=== PATIENT | female | born 1945 | race Hispanic/Latino ===

== ENCOUNTER 2018-08-17 00:51 | Observation (INO) | payer MEDICARE, MEDICAID ==
[2018-08-17 11:24] VITALS: BMI 22.1
[2018-08-17] MEDS ORDERED: Ondansetron PF 4 MG/2 ML Vial IVP PRN (12:05)
[2018-08-17] MEDS ORDERED: Ondansetron ODT 4 MG TAB PO PRN (12:05)
[2018-08-17 12:06] LABS: Troponin I 0.017 ng/mL (< 0.028)
[2018-08-17] MEDS ORDERED: Acetaminophen 325 MG TAB PO PRN ×2 (12:06→12:40)
[2018-08-17] MEDS ORDERED: Bisacodyl 5 MG TAB PO PRN (12:40)
[2018-08-17 14:36] LABS: Troponin I 0.021 ng/mL (< 0.028)
[2018-08-17] MEDS: Furosemide 40 MG/4 ML VIAL SLOW IVP SCH (15:42)
[2018-08-17] MEDS ORDERED: Nitroglycerin 0.4 MG TAB (25 Tab Bottle) SL PRN (18:37)
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
[2018-08-17] MEDS: Acetaminophen/Codeine 30-300mg Tablet PO PRN (19:38)
[2018-08-17] MEDS: Lorazepam 1 MG TAB PO PRN (19:39)
[2018-08-18] MEDS: Levothyroxine Sodium 100 MCG TAB PO SCH (05:37)
[2018-08-18] MEDS: Furosemide 40 MG/4 ML VIAL SLOW IVP SCH ×2 (05:37→13:47)
[2018-08-18 06:07] LABS: Anion Gap 11 mmol/L (10-20); BUN (Urea Nitrogen) 9 mg/dL (9.8-20.1); Calc. Creatinine Clearance 41 mL/min (70-130); Calcium 8.8 mg/dL (7.8-10.44); Carbon Dioxide 31 mmol/L (23-31); Chloride 100 mmol/L (98-107); Estimated GFR-MDRD 58; Glucose 107 mg/dL (83-110); Potassium 3.5 mmol/L (3.5-5.1); Sodium 138 mmol/L (136-145)
[2018-08-18 06:10] LABS: Band 1 % (5-11); Eosinophils 10 % (0-10); Hemoglobin 12.5 g/dL (12.0-16.0); Lymphocytes 28 % (21-51); MDiff Complete? YES; Mean Corpuscular HGB CONC 32.4 g/dL (32.0-36.0); Mean Corpuscular Hemoglobin 31.5 pg (27.0-31.0); Mean Corpuscular Volume 97.2 fL (78.0-98.0); Mean Platelet Volume 7.6 fL (7.4-10.4); Monocytes 22 % (0-10); Neutrophil 36 % (42-75); Platelet Count 208 thou/uL (130-400); RBC Distribution Width 12.4 % (11.5-14.5); Reactive Lymphocytes 3 % (0-10); Red Blood Cell (RBC) Count 3.96 mill/uL (4.20-5.40); White Blood Cell (WBC) Count 6.1 thou/uL (4.8-10.8)
[2018-08-18] MEDS: Aripiprazole 10 MG TAB PO SCH (08:02)
[2018-08-18] MEDS: Lisinopril 20 MG TAB PO SCH (08:02)
[2018-08-18] MEDS ORDERED: cloNIDine 0.1 MG TAB PO PRN (08:53)
[2018-08-18] MEDS: Acetaminophen/Codeine 30-300mg Tablet PO PRN (12:11)
[2018-08-18] MEDS: Lorazepam 1 MG TAB PO PRN (12:12)
--- NOTE | 2018-08-18 17:26 | EKG ---
Test Reason : Blood Pressure : / mmHG Vent. Rate : 074 BPM Atrial Rate : 074 BPM P-R Int : 124 ms QRS Dur : 126 ms QT Int : 438 ms P-R-T Axes : 059 -26 115 degrees QTc Int : 486 ms Normal sinus rhythm Left bundle branch block Abnormal ECG When compared with ECG of 17-AUG-2018 01:20, (Unconfirmed) Left bundle branch block is now Present Criteria for Anterior infarct are no longer Present Confirmed by DR. Shaina BAER ([id number]) on 08/18/2018 5:26:43 PM Referred By: EVY Confirmed By:DR. Shaina BAER
[2018-08-18] MEDS: Lovastatin 20 MG TAB PO SCH (18:05)
--- NOTE | 2018-08-18 19:51 | CON ---
DATE OF CONSULTATION: REASON FOR CONSULTATION: Elevated BNP. HISTORY OF PRESENT ILLNESS: Ms. Gomez is a 72-year-old woman, who is a poor historian. She recently was admitted by Dr. Blue Elias for unknown reason. It is not specified in the chief complaint. Most of the history is obtained from the chart. The patient is not able to give a good history. She has no history of underlying coronary artery disease. Her BNP was slightly elevated. On recent echo, her LVEF is estimated in the 40% to 45%. She was also diagnosed with pneumonia. PAST MEDICAL HISTORY: 1. Acid reflux. 2. Hypertension. 3. Osteoporosis. 4. Hypothyroidism. 5. COPD. SOCIAL HISTORY: Positive for chewing tobacco. Negative for alcohol use. FAMILY HISTORY: Negative for CAD. REVIEW OF SYSTEMS: A 10-point review of systems is reviewed as above, otherwise negative. PHYSICAL EXAMINATION: GENERAL: Patient is a pleasant female, who is in no acute distress. The patient appears their stated age. VITAL SIGNS: Blood pressure 167/85, pulse 72, temperature 98. NEUROLOGIC: The patient is alert and oriented x3 with no focal neurologic deficits. HEENT: Sclerae without icterus. Mouth has moist mucous membranes with normal pallor. NECK: No JVD. Carotid upstroke brisk. No bruits bilaterally. LUNGS: Clear to auscultation with unlabored respirations. BACK: No scoliosis or kyphosis. CARDIAC: Regular rate and rhythm with normal S1 and S2. No S3 or S4 noted. No significant rubs, murmurs, thrills, or gallops noted throughout the precordium. PMI is not displaced. There is no parasternal heave. ABDOMEN: Soft, nontender, nondistended. No peritoneal signs present. No hepatosplenomegaly. No abnormal striae. EXTREMITIES: 2+ femoral and 2+ dorsalis pedis pulses. No cyanosis, clubbing, or edema. SKIN: No gross abnormalities. IMAGING DATA: Echo with Doppler dated on 08/18/2018; LVEF of 40% to 45% with mild MR, TR. PERTINENT LABORATORY DATA: Hemoglobin 12.5. BNP of 369. TSH 0.03. IMPRESSION: 1. Elevated BNP. 2. Mild cardiomyopathy. 3. Pneumonia. 4. Mental status changes. RECOMMENDATIONS: From a CV standpoint, Ms. Gomez appears stable. She is currently on Lasix IV. We will continue. LVEF may be a chronic condition or may be related to recent pneumonia. I would like to discuss further with family. Continue IV Lasix. We will transition to p.o. Lasix. She is also on lisinopril. Would add low-dose Coreg. Job ID: [id number]
--- NOTE | 2018-08-18 20:59 | PRG ---
DATE OF SERVICE: 08/18/2018 SUBJECTIVE: The patient denies any new complaints. Has intermittent dry cough. Feels better otherwise. She denies any chest discomfort. CURRENT MEDICATIONS: Reviewed. The patient is currently on Levaquin, IV Lasix, lisinopril, Protonix, and Zoloft. OBJECTIVE: VITAL SIGNS: Temperature 98.5, pulse rate of 64, respirations 16, O2 saturation 97% on 2 L nasal cannula, and blood pressure 107/59. Intake of 1200, output 500 mL. GENERAL: A 72-year-old female in no apparent distress. LUNGS: Showed scattered rhonchi and rales, especially in the right upper lobe. No wheezing. HEART: S1, S2 present. Regular rate and rhythm. ABDOMEN: Soft, bowel sounds present. EXTREMITIES: Trace edema in bilateral lower extremities. Telemetry monitoring by my review showed sinus rhythm/sinus bradycardia. IMPRESSION: 1. Right upper lobe pneumonia, suspected pneumococcal. 2. Acute on chronic diastolic heart failure exacerbation. 3. Tobacco dependence. 4. Hypertension. 5. Hypothyroidism. 6. Chronic obstructive pulmonary disease with chronic respiratory failure. 7. Gastroesophageal reflux disease. 8. Osteoporosis. 9. Chronic kidney disease stage 3. 10. Penicillin allergy. PLAN: Levaquin will be continued. We will change Lasix to p.o. Echocardiogram was reviewed. We will continue other medications. We will probably plan on discharging her in the next 24 hours. We will recheck labs in a.m. Continue other medications. Job ID: [id number]
[2018-08-19] MEDS: Levothyroxine Sodium 100 MCG TAB PO SCH (05:45)
--- NOTE | 2018-08-19 06:21 | PDOC.CTH ---
Cardiology Progress Note - Subjective No complaints - Objective Vital Signs Temp Pulse Resp BP BP Pulse Ox 08/19/18 03:45 98.7 F 66 16 114/47 L 96 08/18/18 23:28 64 16 97/54 L 98 08/18/18 22:30 61 93/51 L 08/18/18 20:30 91/52 L 08/18/18 20:00 98.1 F 64 16 88/51 L 98 Weight 105 lb 3.2 oz 08/17/18 08/18/18 08/19/18 06:59 06:59 06:59 Intake Total 630 1440 Output Total 1000 Balance 630 440 - Physical Examination General/Neuro: NAD Neck: no JVD present Lungs: CTA, unlabored respirations Heart: PMI normal, RRR Abdomen: NT/ND, soft Extremities: + femoral B - Labs Result Diagrams: 08/19/18 04:56 08/19/18 04:56 Troponin/CKMB Troponin I 0.021 ng/mL (< 0.028) 08/17/18 14:04 - Assessment/Plan Mild CArdiomyopathy pneumonia dementia Advanced age On Abx Change lasix from IV to PO on coreg, ACEI and statin Ok for DC with OP fu
[2018-08-19 06:37] LABS: Albumin 3.7 g/dL (3.4-4.8); Anion Gap 13 mmol/L (10-20); BUN (Urea Nitrogen) 17 mg/dL (9.8-20.1); BUN/Creatinine Ratio 11.64; Calc. Creatinine Clearance 26 mL/min (70-130); Calcium 9.1 mg/dL (7.8-10.44); Carbon Dioxide 28 mmol/L (23-31); Chloride 101 mmol/L (98-107); Estimated GFR-MDRD 35; Glucose 106 mg/dL (83-110); Magnesium 2.1 mg/dL (1.6-2.6); Phosphorus 3.9 mg/dL (2.3-4.7); Potassium 3.6 mmol/L (3.5-5.1); Sodium 138 mmol/L (136-145)
[2018-08-19 06:46] LABS: Mean Corpuscular HGB CONC 32.7 g/dL (32.0-36.0); Mean Corpuscular Hemoglobin 31.7 pg (27.0-31.0); Mean Platelet Volume 7.6 fL (7.4-10.4); Platelet Count 236 thou/uL (130-400); RBC Distribution Width 12.4 % (11.5-14.5); Red Blood Cell (RBC) Count 4.11 mill/uL (4.20-5.40); White Blood Cell (WBC) Count 6.8 thou/uL (4.8-10.8)
[2018-08-19] MEDS ORDERED: Furosemide 40 MG TAB PO SCH (07:30)
[2018-08-19] MEDS ORDERED: Multivit, Therapeutic 1 TAB PO SCH (09:00)
[2018-08-19 09:45] LABS: Band 10 % (5-11); Eosinophils 2 % (0-10); Lymphocytes 36 % (21-51); MDiff Complete? YES; Monocytes 16 % (0-10); Neutrophil 36 % (42-75); RBC Morphology Normal
[2018-08-19] MEDS: Lisinopril 20 MG TAB PO SCH (10:11)
[2018-08-19] MEDS: Aripiprazole 10 MG TAB PO SCH (10:14)
[2018-08-19] MEDS: Carvedilol 3.125 MG TAB PO SCH ×2 (10:15→18:54)
[2018-08-19] MEDS ORDERED: Sodium Chloride 0.9% 250 ML IV SCH (11:30)
[2018-08-19 14:21] LABS: Anion Gap 12 mmol/L (10-20); BUN (Urea Nitrogen) 16 mg/dL (9.8-20.1); Calc. Creatinine Clearance 32 mL/min (70-130); Calcium 8.9 mg/dL (7.8-10.44); Carbon Dioxide 27 mmol/L (23-31); Chloride 102 mmol/L (98-107); Estimated GFR-MDRD 44; Glucose 116 mg/dL (83-110); Potassium 3.7 mmol/L (3.5-5.1); Sodium 137 mmol/L (136-145)
[2018-08-19] MEDS: Lovastatin 20 MG TAB PO SCH (18:54)
[2018-08-19 19:51] VITALS: BP 124/64; TEMP 98.4
--- NOTE | 2018-08-19 21:24 | DIS ---
DATE OF ADMISSION: 08/17/2018 DATE OF DISCHARGE: 08/19/2018 DISCHARGE DISPOSITION: Home with home health care. DISCHARGE MEDICATIONS: 1. Levaquin 500 mg daily for next 5 days. 2. Lasix 20 mg daily as needed for edema. 3. Carvedilol 3.125 mg b.i.d. 4. Multivitamin 1 tablet daily. 5. All other home medications were left unchanged. The patient was seen on the day of discharge. Denies any new complaints. No chest pain, shortness of breath, palpitations reported. BRIEF HOSPITAL COURSE: The patient is a 72-year-old female with hypertension, tobacco dependence, CKD, and COPD, presented to the hospital with shortness of breath. Please refer to the history and physical for further details. The patient was admitted to the hospital with a diagnosis of community-acquired pneumonia. She was also found to be in congestive heart failure exacerbation. Her BNP on admission was 369. CT angiogram of the chest was done in the emergency room for elevated D-dimer, which showed findings suspicious for right upper lobe pneumonia. She showed good improvement with antibiotics. She has remained afebrile. Her O2 saturation at discharge is 95% on 1 L nasal cannula. Home health care will be arranged. She was also evaluated by Cardiology, who recommended to continue AKASH inhibitor and statin. Carvedilol was added. She tolerated carvedilol very well without significant wheezing. She has been cleared by consultants for discharge. FINAL DIAGNOSES: 1. Generalized weakness, multifactorial. 2. Right upper lobe pneumonia, suspected pneumococcal. 3. [place]oyal-du-hizkc[place] diastolic heart failure exacerbation. 4. Tobacco dependence. 5. Chronic obstructive pulmonary disease with chronic hypoxic respiratory failure, on home oxygen. 6. Tobacco dependence, the patient was counseled. 7. Hypertension. 8. Hypothyroidism. 9. Gastroesophageal reflux disease. 10. Osteoporosis. 11. Chronic kidney disease, stage 3. 12. Penicillin allergy. 13. Physical deconditioning. 14. Mild mitral regurgitation and mild tricuspid regurgitation. 15. Mild mediastinal and bilateral hilar lymphadenopathy. Primary care physician advised to follow. 16. Small hiatal hernia. PLAN: Plan of care was discussed with the patient in detail. She stated understanding. Job ID: [id number]
--- NOTE | 2018-08-23 14:58 | EKG ---
Test Reason : Blood Pressure : / mmHG Vent. Rate : 071 BPM Atrial Rate : 071 BPM P-R Int : 122 ms QRS Dur : 120 ms QT Int : 450 ms P-R-T Axes : 056 -45 116 degrees QTc Int : 489 ms Normal sinus rhythm Left axis deviation Anterior infarct , age undetermined Left bundle branch block Abnormal ECG Confirmed by LOUIE ESTRELLA MD ([id number]), book or script editor WOLF BLISS ([id number]) on 08/23/2018 2:58:07 PM Referred By: Confirmed By:LOUIE ESTRELLA MD
== END 2018-08-19 20:12 | disposition home health service (06) ==
LOC: ERS 00:51 → ERHOLD 01:32 → 2SW 01:51
PROVIDERS: ADMIT Hospitalist; ATTEND Hospitalist
DX: J18.1 Lobar pneumonia, unspecified organism (principal); I13.0 Hypertensive heart and chronic kidney disease with heart failure and stage 1 through stage 4 chronic kidney disease, or unspecified chronic kidney disease; N18.3 Chronic kidney disease, stage 3 (moderate); I50.33 Acute on chronic diastolic (congestive) heart failure; J96.11 Chronic respiratory failure with hypoxia; E03.9 Hypothyroidism, unspecified; K21.9 Gastro-esophageal reflux disease without esophagitis; M81.0 Age-related osteoporosis without current pathological fracture; J44.9 Chronic obstructive pulmonary disease, unspecified; F17.220 Nicotine dependence, chewing tobacco, uncomplicated; F41.9 Anxiety disorder, unspecified; F32.9 Major depressive disorder, single episode, unspecified; R79.89 Other specified abnormal findings of blood chemistry; I42.9 Cardiomyopathy, unspecified; F03.90 Unspecified dementia, unspecified severity, without behavioral disturbance, psychotic disturbance, mood disturbance, and anxiety; K44.9 Diaphragmatic hernia without obstruction or gangrene; I08.1 Rheumatic disorders of both mitral and tricuspid valves; R59.0 Localized enlarged lymph nodes; Z79.899 Other long term (current) drug therapy; Z88.0 Allergy status to penicillin; Z99.81 Dependence on supplemental oxygen
CPT/HCPCS: 80048 ×2; 80069; 83735; 84484 ×2; 85025 ×2; 87040; 93005 ×2; 93306; 94760; 96365; 96366; 96375; 96376; 99285; G0378 ×3; 36415; 93010; J1940; J1956

== ENCOUNTER 2020-03-16 09:57 | Observation (INO) | payer MEDICARE, MEDICAID ==
--- NOTE | 2020-03-16 10:50 | CT ---
Head CT without contrast 03/16/2020: COMPARISON: 10/18/2017 HISTORY: Altered mental status, syncope, fall TECHNIQUE: Axial CT imaging at 5 mm intervals from vertex through skull base without contrast FINDINGS: There is multifocal venous gas likely on the basis of prior intravenous injection seen at t he level the skull base, the cavernous sinuses, and the orbital regions. No acute osseous abnormality. No intracranial hemorrhage, midline shift, or mass effect. IMPRESSION: No intracranial hemorrhage or displaced calvarial fracture.
[2020-03-16 11:12] LABS: #Basophils 0.1 thou/uL (0.0-0.2); #Eosinphils 0.1 thou/uL (0.0-0.7); #Monocytes 0.8 thou/uL (0.11-0.59); #Neutrophils 11.8 thou/uL (1.40-6.50); %Basophils 0.4 % (0.0-1.0); %Lymphocytes 7.1 % (21.0-51.0); %Monocytes 5.8 % (0.0-10.0); %Neutrophils 85.8 % (42.0-75.0); Hemoglobin 13.5 g/dL (12.0-16.0); Mean Corpuscular HGB CONC 32.1 g/dL (32.0-36.0); Mean Corpuscular Hemoglobin 32.1 pg (27.0-31.0); Mean Platelet Volume 7.2 fL (7.4-10.4); Platelet Count 233 thou/uL (130-400); RBC Distribution Width 12.4 % (11.5-14.5); White Blood Cell (WBC) Count 13.8 thou/uL (4.8-10.8)
[2020-03-16 11:40] LABS: ALT (SGPT) 16 U/L (8-55); AST (SGOT) 24 U/L (5-34); Albumin 3.5 g/dL (3.4-4.8); Alkaline Phosphatase 52 U/L (40-110); Anion Gap 16 mmol/L (10-20); BUN (Urea Nitrogen) 11 mg/dL (9.8-20.1); Bilirubin, Total 0.4 mg/dL (0.2-1.2); Calc. Creatinine Clearance 0 mL/min (70-130); Calcium 8.2 mg/dL (7.8-10.44); Carbon Dioxide 22 mmol/L (23-31); Chloride 110 mmol/L (98-107); Globulin 2.6 g/dL (2.4-3.5); Glucose 153 mg/dL (83-110); Potassium 4.1 mmol/L (3.5-5.1); Protein, Total 6.1 g/dL (6.0-8.3); Sodium 144 mmol/L (136-145)
[2020-03-16 11:50] LABS: Bilirubin Negative (Negative); Blood, Urine Negative (Negative); Clarity Clear (Clear); Glucose, Urine (Dipstick) 30 mg/dL (Negative); Ketone, Urine Negative (Negative); Leukocyte Negative Leu/uL (Negative); Nitrite Negative (Negative); Protein, Urine (Dipstick) 20 mg/dL (Neg-Trace); Specific Gravity, Urine 1.012 (1.002-1.036); Urobilinogen Normal mg/dL (Less than 2); pH, Urine 5.5 (5.0-9.0)
--- NOTE | 2020-03-16 11:53 | RAD ---
Portable frontal chest radiograph: 03/16/2020 COMPARISON: 02/18/2020 HISTORY: Syncope and collapse FINDINGS: No pneumothorax or pleural fluid. No focal consolidation or alveolar edema. Mild prominence of the aortic knob with atherosclerotic calcification. Mild pulmonary vascular congestion with no alveolar edema. IMPRESSION: No focal consolidation or alveolar edema.
--- NOTE | 2020-03-16 12:36 | CT ---
CT CERVICAL SPINE WITH CORONAL AND SAGITTAL REFORMATIONS: Date: 03/16/2020 HISTORY: Syncope with fall. FINDINGS/IMPRESSION: Degenerative changes are present. No acute fracture, subluxation, or facet malalignment is identified . There is a focal central disc protrusion at C5-6 level with probable impingement of the anterior sp inal cord. No prevertebral soft tissue swelling is seen. The visualized lung ricardo are unremarkable. There is soft tissue air in and around the cervical spine, as well as in the cavernous sinuses, and p eripheral aspect of the transverse foramina, most likely due to air through IV access. Soft tissue ai r is also seen in the left lower neck/upper chest (?vascular). POS: OFF
[2020-03-16] MEDS ORDERED: Albuterol 200 PUFF (6.7GM INHALER) ONE (13:31)
[2020-03-16] MEDS ORDERED: Acetaminophen/Codeine 30-300mg Tablet PO PRN (14:21)
[2020-03-16] MEDS ORDERED: Sodium Chloride 0.9% 1,000 ML IV SCH (14:30)
[2020-03-16] MEDS ORDERED: Nicotine 14 MG PATCH TD SCH (15:00)
--- NOTE | 2020-03-16 17:24 | PDOC.HHP ---
Hospitalist HPI - History of Present Illness History of Present Illness: ADMISSION DATE: 03/16/2020 TIME OF ASSESSMENT: 1345 PRIMARY CARE PHYSICIAN: Ted CHIEF COMPLAINT: Syncope and collapse HPI: This is a 74-year-old female past medical history significant for COPD, hypertension, CHF, anxiety. She presents to the ER today after having a syncopal episode while at home. Family states that she was getting up to walk to the bathroom when she passed out and fell backwards. When EMS arrived on scene her blood pressure was 70 systolic and she was given 30 mcg of epi twice and a liter of fluids, at that time her blood pressure had risen. Patient does not remember this episode and only remembers EMS being there. Patient denies chest pain, nausea, vomiting, diarrhea, shortness of breath, abdominal pain, ex posure to sick persons. Patient was started on a new prescription yesterday of aripiprazole and temazepam. She did take the temazepam last night for the first time prior to bed. She states that it made her feel a little "off". She stated that she felt a little goofy headed after taking it. ED COURSE: Vital Signs: Blood pressure 160/88, pulse 65, respiratory rate 17, temp 98, O2 saturation 99% on 2 L Today in the ER they completed lab work, CT of the spine and brain, chest x-ray, EKG, UA. Patient was given Proventil 4 puffs and 1 L normal saline. 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 She denies alcohol or drug use. Has previous history of smoking. Patient still dips snuff daily. FAMILY HISTORY: Cancer, hypertension, diabetes ALLERGIES: Penicillin CURRENT MEDICATIONS: Lisinopril 20 mg daily Aripiprazole 10 mg daily Sertraline 100 mg daily Temazepam 50 mg at night Tylenol 3 as needed Albuterol Nitro sublingual as needed Patient also takes a "heart pill" and something for GERDnames unknown Hospitalist ROS - Review of Systems Constitutional: reports: other (syncope this am) ENT: reports: nose congestion All other systems reviewed; all pertinent +/- noted in HPI/Subj - Exam General Appearance: awake alert, ill appearing ENT: normocephalic atraumatic Heart: RRR, no murmur, no gallops, no rubs, normal peripheral pulses Respiratory: no tachypnea, rales, rhonchi Gastrointestinal: soft, non-tender, non-distended, normal bowel sounds Extremities: no edema Skin - other findings: lesion above left upper lip Psychiatric: normal behavior, A&O x 3 Hospitalist Results - Labs Result Diagrams: 03/16/20 10:47 03/16/20 10:47 Lab results: WBC 13.8 thou/uL (4.8-10.8) H 03/16/20 10:47 Hgb 13.5 g/dL (12.0-16.0) 03/16/20 10:47 Hct 42.0 % (36.0-47.0) 03/16/20 10:47 MCV 100.0 fL (78.0-98.0) H 03/16/20 10:47 Plt Count 233 thou/uL (130-400) 03/16/20 10:47 Neutrophils % 85.8 % (42.0-75.0) H 03/16/20 10:47 Sodium 144 mmol/L (136-145) 03/16/20 10:47 Potassium 4.1 mmol/L (3.5-5.1) 03/16/20 10:47 Chloride 110 mmol/L (98-107) H 03/16/20 10:47 Carbon Dioxide 22 mmol/L (23-31) L 03/16/20 10:47 BUN 11 mg/dL (9.8-20.1) 03/16/20 10:47 Creatinine 0.94 mg/dL (0.6-1.1) 03/16/20 10:47 Glucose 153 mg/dL (83-110) H 03/16/20 10:47 Calcium 8.2 mg/dL (7.8-10.44) 03/16/20 10:47 Total Bilirubin 0.4 mg/dL (0.2-1.2) 03/16/20 10:47 AST 24 U/L (5-34) 03/16/20 10:47 ALT 16 U/L (8-55) 03/16/20 10:47 Alkaline Phosphatase 52 U/L (40-110) 03/16/20 10:47 Troponin I Less than 0.010 ng/mL (< 0.028) 03/16/20 10:47 B-Natriuretic Peptide 38.2 pg/mL (0-100) 03/16/20 12:06 Serum Total Protein 6.1 g/dL (6.0-8.3) 03/16/20 10:47 Albumin 3.5 g/dL (3.4-4.8) 03/16/20 10:47 Urine Ketones Negative mg/dL (Negative) 03/16/20 11:34 Urine Blood Negative (Negative) 03/16/20 11:34 Urine Nitrite Negative (Negative) 03/16/20 11:34 Ur Leukocyte Esterase Negative Steve/uL (Negative) 03/16/20 11:34 - EKG Interpretation EKG: Sinus rhythm 60 bpm Hospitalist H&P A/P - Plan Plan: Syncope and collapse Orthostatic vital signs ordered Vital signs every 4 hours Cardiology consult Gentle hydration Echo in a.m. Monitor on telemetry for any arrhythmias Leukocytosis No acute signs of infection currently Possibly related due to the 2 doses of epinephrine Continue to trend for fever and white blood cells in a.m. COPD Continue home medications Osteoporosis Continue Tylenol 3 while in hospital for pain controlis a home medication Hypertension Hold antihypertensives for today as patient had syncopal episode with profound hypotension earlier Continue to monitor every 4 hours Reevaluate tomorrow to see if medications can be restarted VTE prophylaxis in place with SCDs CODE STATUS: Full Surrogate decision-maker is her daughters
[2020-03-16 17:26] LABS: Base Excess-Venous -1.1 mmol/L (-2.0 to 3.0); Bicarbonate (HCO3v) 23.9 mmol/L (22.0-28.0); CO2 Tension (PvCO2) 40.2 mmHg (40.0-50.0); Calcium, Ionized 1.04 mmol/L (1.15-1.33); Chloride 111 mmol/L (98-107); Hemoglobin - Calc 12.7 g/dL (12.0-16.0); Potassium 4.1 mmol/L (3.5-5.1); Sodium 144 mmol/L (138-145); T. Carbon Dioxide 25.1 mmol/L (22.0-28.0); vO2 Saturation-calc 89.8 % (60.0-85.0)
[2020-03-16 17:34] LABS: Troponin I Less than 0.010 ng/mL (< 0.028)
[2020-03-16 22:34] LABS: Troponin I Less than 0.010 ng/mL (< 0.028)
[2020-03-16 23:50] LABS: SARS-CoV-2 NAA Rapid Test Not Detected (NotDetected)
[2020-03-16 23:52] VITALS: BMI 18.8
[2020-03-17 05:01] LABS: #Eosinphils 0.3 thou/uL (0.0-0.7); #Lymphocytes 1.9 thou/uL (1.20-3.40); #Monocytes 0.8 thou/uL (0.11-0.59); #Neutrophils 4.2 thou/uL (1.40-6.50); %Basophils 0.6 % (0.0-1.0); %Eosinophils 4.1 % (0.0-10.0); %Lymphocytes 25.8 % (21.0-51.0); %Monocytes 11.6 % (0.0-10.0); %Neutrophils 57.9 % (42.0-75.0); Mean Corpuscular HGB CONC 32.9 g/dL (32.0-36.0); Mean Corpuscular Hemoglobin 33.2 pg (27.0-31.0); Mean Platelet Volume 7.5 fL (7.4-10.4); Platelet Count 217 thou/uL (130-400); RBC Distribution Width 12.2 % (11.5-14.5); Red Blood Cell (RBC) Count 3.62 mill/uL (4.20-5.40); White Blood Cell (WBC) Count 7.2 thou/uL (4.8-10.8)
[2020-03-17 05:22] LABS: Anion Gap 11 mmol/L (10-20); BUN (Urea Nitrogen) 6 mg/dL (9.8-20.1); Calc. Creatinine Clearance 44 mL/min (70-130); Calcium 7.7 mg/dL (7.8-10.44); Carbon Dioxide 23 mmol/L (23-31); Chloride 109 mmol/L (98-107); Glucose 100 mg/dL (83-110); Potassium 3.5 mmol/L (3.5-5.1); Sodium 139 mmol/L (136-145)
[2020-03-17] MEDS ORDERED: Aspirin Chewable 81 MG TAB PO SCH (09:00)
[2020-03-17] MEDS ORDERED: FLU VACC QS2020-21(65YR UP)/PF 240 MCG/0.7 ML SYRINGE IM ONE (09:00)
--- NOTE | 2020-03-17 11:58 | CON ---
DATE OF CONSULTATION: REASON FOR CONSULTATION: Syncope. HISTORY OF PRESENT ILLNESS: Ms. Gomez is a 74-year-old woman, whom I have seen and evaluated in the past. She has had a previous history of mild cardiomyopathy, estimated at 40% to 45%. She did have a noninvasive stress study performed last year with no ischemia present. LVEF at that time was 51%. She recently presented with syncope. She states she had some mild nausea noted prior. No chest pain, pressure, or other associated symptoms. Note, the patient has had issues with noncompliance in the past. At this point, she also admits to having issues with compliance with the current medical therapy. MEDICATIONS: Current home medications include: 1. Lasix 20 mg q.a.m. 2. Lisinopril 20 daily. 3. Carvedilol 3.125 b.i.d. 4. Omeprazole 40 mg daily. 5. Sertraline. 6. Tylenol. 7. Senna. 8. Vitamin D. 9. Lovastatin. 10. Nitroglycerin p.r.n. 11. Lorazepam. 12. Levothyroxine. PAST MEDICAL HISTORY: Acid reflux, hypertension, osteoporosis, hypothyroidism, COPD, mild systolic dysfunction, depression, previous suicidal ideation, hearing loss. SOCIAL HISTORY: No current tobacco or alcohol use. ALLERGIES: PENICILLIN. REVIEW OF SYSTEMS: 10-point review of systems is reviewed and as above, otherwise negative. PHYSICAL EXAMINATION: VITAL SIGNS: Blood pressure 120/58, pulse 87, temperature 98.9. GENERAL: Patient is a pleasant 74-year-old woman, who is in no acute distress. The patient appears their stated age. NEUROLOGIC: The patient is alert and oriented x3 with no focal neurologic deficits. HEENT: Sclerae without icterus. Mouth has moist mucous membranes with normal pallor. NECK: No JVD. Carotid upstroke brisk. No bruits bilaterally. LUNGS: Clear to auscultation with unlabored respirations. BACK: No scoliosis or kyphosis. CARDIAC: Regular rate and rhythm with normal S1 and S2. No S3 or S4 noted. No significant rubs, murmurs, thrills, or gallops noted throughout the precordium. PMI is not displaced. There is no parasternal heave. ABDOMEN: Soft, nontender, nondistended. No peritoneal signs present. No hepatosplenomegaly. No abnormal striae. EXTREMITIES: 2+ femoral and 2+ dorsalis pedis pulses. No cyanosis, clubbing, or edema. SKIN: No gross abnormalities. PERTINENT LABORATORY DATA: Hemoglobin 13.5, white blood cell count 13.8. Troponin negative. EKG shows normal sinus rhythm with left bundle-branch block. IMPRESSION: 1. Syncope. 2. Mild cardiomyopathy. 3. Chronic left bundle-branch block. RECOMMENDATIONS: Certainly concerning for underlying sick sinus syndrome. This is a first episode of syncope. The rhythm has been stable overnight. Other etiologies to consider include over or under medication given history of noncompliance. She has had suicidal ideations in the past, but none today. We would recommend a 3-week event recorder to be placed today. We would like to see a correlation between bradycardia, pauses, or sick sinus syndrome and symptoms. We will review her echo. If LVEF appears to be stable, it would be okay for discharge this afternoon from my standpoint with close outpatient followup. Job ID: [id number]
[2020-03-17 12:33] VITALS: TEMP 98.5
[2020-03-17 12:43] VITALS: BP 145/67
--- NOTE | 2020-03-18 09:30 | PDOC.DS.DS ---
Provider - Provider Date of Admission: 03/16/20 12:22 Date of Discharge: 03/17/20 Admitting Provider: Blue Elias MD Consultations: Cardiology Primary Care Physician: [facility] Course - Hospital Course Hospital Course: Syncope and collapse Patient presented with syncopal episode. She was subsequently placed in observation status. Orthostatic vital signs were unremarkable. Remainder of her vital signs were unremarkable. Echocardiogram revealed an ejection fraction of 45 to 50% with mild concentric LVH. There was the suggestion of diastolic dysfunction as well. Troponins remain negative. Chemistries were otherwise essentially unremarkable for possible etiologies. She was seen in consultation by cardiology. She was noted to have a chronic left bundle branch block. There was concern for possible sick sinus syndrome. A 3-week event recorder was recommended and placed prior to the patient discharge. Was cardiology's opinion that the patient was stable for discharge for outpatient follow-up. Hypotension: Associated with the syncopal episode and concerning for possible arrhythmia genic origin. Leukocytosis Patient had initial hypotension when EMS presented. She was given 2 rounds of epinephrine. Was felt that her leukocytosis was likely related to these. The white count normalized without any other intervention. She had no fever or other signs of infection. COPD Continue home medications Osteoporosis Continue Tylenol 3 while in hospital for pain controlis a home medication Hypertension Hold antihypertensives for today as patient had syncopal episode with profound hypotension earlier Continue to monitor every 4 hours Reevaluate tomorrow to see if medications can be restarted VTE prophylaxis in place with SCDs CODE STATUS: Full Surrogate decision-maker is her daughters Pertinent Studies: CT brain was negative. There was some soft tissue air noted around the cervical spine cavernous sinus area and peripheral aspect of the transverse foramina most likely due to air through IV access. Chest x-ray is negative. Echocardiogram revealed ejection fraction of 45 to 50% with mild concentric LVH. Suggestion of diastolic dysfunction present. Resuscitation Status: 03/16/20 14:18 Resuscitation Status Routine Co-Sign Provider: Resuscitation Status: FULL: Full Resuscitation Discussed with: pt and daughter - Labs Lab Results: 03/17/20 04:17 03/17/20 04:17 Abnormal Lab Results - Last 48 hrs 03/16/20 10:47: Chloride 110 H, Carbon Dioxide 22 L 03/16/20 10:47: WBC 13.8 H, MCV 100.0 H, MCH 32.1 H, MPV 7.2 L, Neutrophils % 85.8 H, Lymphocytes % 7.1 L, Neutrophils # 11.8 H, Lymphocytes # 1.0 L, Monocytes # 0.8 H 03/16/20 12:06: D-Dimer 0.51 H 03/16/20 15:50: VBG pO2 59.1 H, POC VBG O2 Sat (Calc) 89.8 H, POC Venous Chloride 111 H, POC Venous Ion Calcium 1.04 L 03/17/20 04:17: Chloride 109 H, BUN 6 L, Calcium 7.7 L 03/17/20 04:17: RBC 3.62 L, MCV 101.0 H, MCH 33.2 H, Monocytes % 11.6 H, Monocytes # 0.8 H - Physical Exam Vitals: Weight Admit Weight 93 lb Weight 93 lb Physical Exam: The patient was seen and examined on the day of discharge. Patient was awake and alert. Heart was regular without murmur. Lungs were diminished but clear. Abdomen was benign. No edema. Problem - Problem (1) Syncope Code(s): R55 - SYNCOPE AND COLLAPSE Status: Acute (2) Hypotension Status: Acute (3) Hypertension Code(s): I10 - ESSENTIAL (PRIMARY) HYPERTENSION Status: Acute (4) Left bundle branch block Code(s): I44.7 - LEFT BUNDLE-BRANCH BLOCK, UNSPECIFIED Status: Acute (5) Leukocytosis Code(s): D72.829 - ELEVATED WHITE BLOOD CELL COUNT, UNSPECIFIED Status: Acute (6) Cardiomyopathy Code(s): I42.9 - CARDIOMYOPATHY, UNSPECIFIED Status: Acute Plan - Discharge Medications Prescriptions: Carvedilol [Coreg] 3.125 mg PO BID-WM #60 tab Lisinopril 20 mg PO DAILY #30 tablet Lovastatin 20 mg PO QPM-WM #30 tablet Home Medications: Medication Instructions Recorded Confirmed Type ARIPiprazole [Abilify] 10 mg PO DAILY 10/18/17 03/16/20 History Acetaminophen W/ Codeine 1 tab PO Q6HR PRN 10/18/17 03/16/20 History [Acetaminophen/Codeine #3] Levothyroxine Sodium [Synthroid] 100 mcg PO DAILY 10/18/17 03/16/20 History Nitroglycerin 0.4 mg SL PRN PRN 10/18/17 03/16/20 History Omeprazole 40 mg PO DAILY 10/18/17 03/16/20 History Sertraline HCl 100 mg PO DAILY 10/18/17 03/16/20 History Cholecalciferol (Vitamin D3) 1,000 unit PO DAILY 08/17/18 03/16/20 History [Vitamin D3] Ipratropium/Albuterol Sulfate 3 ml NEB Q8HR PRN 08/17/18 03/16/20 History [DuoNeb] Furosemide [Lasix] 20 mg PO DAILY PRN #20 tab 08/19/18 03/16/20 Rx Multivit, Therapeutic [Theragran] 1 tab PO DAILY tab 08/19/18 03/16/20 Rx Carvedilol [Coreg] 3.125 mg PO BID-WM #60 tab 03/17/20 Rx Lisinopril 20 mg PO DAILY #30 tablet 03/17/20 Rx Lovastatin 20 mg PO QPM-WM #30 tablet 03/17/20 Rx Allergies: Penicillins Allergy (Verified 08/17/18 16:35) - Discharge Instructions Activity:: Activity as Tolerated Nourishment:: Heart Healthy Diet - Follow up Plan Referrals: [facility] [Primary Care Provider] - 7 Days ( CALL FOR FOLLOW-UP APPOINTMENT ) Eduardo Wilcox MD [Active] - 2-3 Weeks ( CALL FOR FOLLOW-UP APPOINTMENT ) Disposition: HOME Quality - Care Measures CORE MEASURES:: N/A
== END 2020-03-17 16:23 | disposition home or self-care (01) ==
LOC: ERS 09:57 → 2NO 12:22
PROVIDERS: ADMIT Internal Medicine; ATTEND Internal Medicine
DX: I95.9 Hypotension, unspecified (principal); J44.9 Chronic obstructive pulmonary disease, unspecified; D72.829 Elevated white blood cell count, unspecified; I11.0 Hypertensive heart disease with heart failure; I50.9 Heart failure, unspecified; F32.9 Major depressive disorder, single episode, unspecified; F41.9 Anxiety disorder, unspecified; E03.9 Hypothyroidism, unspecified; M81.0 Age-related osteoporosis without current pathological fracture; F17.290 Nicotine dependence, other tobacco product, uncomplicated; I44.7 Left bundle-branch block, unspecified; I42.9 Cardiomyopathy, unspecified; H91.90 Unspecified hearing loss, unspecified ear; Z79.899 Other long term (current) drug therapy; Z88.0 Allergy status to penicillin; Z20.828 Contact with and (suspected) exposure to other viral communicable diseases; Z91.5 Personal history of self-harm; W19.XXXA Unspecified fall, initial encounter
CPT/HCPCS: 0240U; 70450; 71045; 72125; 80048; 80053; 81003; 82330; 82435; 82803; 83880; 84132; 84295; 84484 ×2; 85014; 85025 ×2; 85379; 93005; 93306; 94664; 36415; 51701; G0378

== ENCOUNTER 2020-10-04 12:49 | Observation (INO) | payer MEDICARE, MEDICAID ==
[~2020-10-04 12:49] MED LIST: Iopamidol 370 76% 100 ML VIAL ONE
[2020-10-04 13:46] LABS: ALT (SGPT) 10 U/L (8-55); AST (SGOT) 17 U/L (5-34); Albumin 3.9 g/dL (3.4-4.8); Alkaline Phosphatase 61 U/L (40-110); Anion Gap 18 mmol/L (10-20); BUN (Urea Nitrogen) 15 mg/dL (9.8-20.1); Bilirubin, Total 0.4 mg/dL (0.2-1.2); Calc. Creatinine Clearance 0 mL/min (70-130); Calcium 8.8 mg/dL (7.8-10.44); Carbon Dioxide 17 mmol/L (23-31); Chloride 107 mmol/L (98-107); Globulin 3.1 g/dL (2.4-3.5); Glucose 130 mg/dL (83-110); Lipase 22 U/L (8-78); Potassium 4.8 mmol/L (3.5-5.1); Sodium 137 mmol/L (136-145)
[2020-10-04 13:49] LABS: #Basophils 0.1 thou/uL (0.0-0.2); #Eosinphils 0.5 thou/uL (0.0-0.7); #Lymphocytes 2.3 thou/uL (1.20-3.40); #Monocytes 1.2 thou/uL (0.11-0.59); #Neutrophils 12.5 thou/uL (1.40-6.50); %Basophils 0.4 % (0.0-1.0); %Eosinophils 2.9 % (0.0-10.0); %Neutrophils 75.7 % (42.0-75.0); Hemoglobin 14.8 g/dL (12.0-16.0); Mean Corpuscular Hemoglobin 31.9 pg (27.0-31.0); Mean Corpuscular Volume 99.5 fL (78.0-98.0); Platelet Count 258 thou/uL (130-400); RBC Distribution Width 12.4 % (11.5-14.5); Red Blood Cell (RBC) Count 4.63 mill/uL (4.20-5.40); White Blood Cell (WBC) Count 16.6 thou/uL (4.8-10.8)
[2020-10-04 14:56] LABS: Bilirubin Negative (Negative); Blood, Urine Negative (Negative); Clarity Clear (Clear); Glucose, Urine (Dipstick) Normal (Negative); Ketone, Urine Negative (Negative); Leukocyte Negative Leu/uL (Negative); Nitrite Negative (Negative); Protein, Urine (Dipstick) 10 mg/dL (Neg-Trace); Specific Gravity, Urine 1.043 (1.002-1.036); Urobilinogen Normal mg/dL (Less than 2); pH, Urine 5.5 (5.0-9.0)
[2020-10-04] MEDS ORDERED: Ondansetron PF 4 MG/2 ML Vial IVP PRN (20:30)
[2020-10-04] MEDS ORDERED: Acetaminophen 325 MG TAB PO PRN (20:30)
[2020-10-04] MEDS ORDERED: Ondansetron ODT 4 MG TAB SL PRN (20:30)
[2020-10-04 22:42] VITALS: BMI 20.9
[2020-10-05] MEDS ORDERED: Acetaminophen 325 MG TAB PO PRN (02:48)
[2020-10-05] MEDS ORDERED: Ondansetron PF 4 MG/2 ML Vial IVP PRN (02:48)
[2020-10-05] MEDS ORDERED: Sodium Chloride 0.9% 1,000 ML IV SCH (03:00)
[2020-10-05 04:49] LABS: #Basophils 0.1 thou/uL (0.0-0.2); #Eosinphils 0.6 thou/uL (0.0-0.7); #Lymphocytes 3.2 thou/uL (1.20-3.40); #Monocytes 0.9 thou/uL (0.11-0.59); %Basophils 0.9 % (0.0-1.0); %Eosinophils 6.5 % (0.0-10.0); %Monocytes 10.5 % (0.0-10.0); %Neutrophils 46.1 % (42.0-75.0); Hemoglobin 13.1 g/dL (12.0-16.0); Mean Corpuscular HGB CONC 33.7 g/dL (32.0-36.0); Mean Corpuscular Hemoglobin 32.7 pg (27.0-31.0); Mean Corpuscular Volume 97.2 fL (78.0-98.0); Mean Platelet Volume 7.1 fL (7.4-10.4); Platelet Count 232 thou/uL (130-400); RBC Distribution Width 12.2 % (11.5-14.5); Red Blood Cell (RBC) Count 4.02 mill/uL (4.20-5.40); White Blood Cell (WBC) Count 8.7 thou/uL (4.8-10.8)
[2020-10-05 05:08] LABS: Anion Gap 13 mmol/L (10-20); BUN (Urea Nitrogen) 12 mg/dL (9.8-20.1); Calc. Creatinine Clearance 47 mL/min (70-130); Calcium 8.2 mg/dL (7.8-10.44); Carbon Dioxide 19 mmol/L (23-31); Chloride 110 mmol/L (98-107); Glucose 93 mg/dL (83-110); Potassium 3.7 mmol/L (3.5-5.1); Sodium 138 mmol/L (136-145)
[2020-10-05 11:37] VITALS: BP 126/58; TEMP 98.4
== END 2020-10-05 14:15 | disposition home or self-care (01) ==
LOC: ERS 12:49 → ERHOLD 16:02 → 2NO 20:17
PROVIDERS: ADMIT Family Medicine; ATTEND Internal Medicine
DX: N17.9 Acute kidney failure, unspecified (principal); E86.0 Dehydration; D72.829 Elevated white blood cell count, unspecified; R19.7 Diarrhea, unspecified; I11.0 Hypertensive heart disease with heart failure; I50.42 Chronic combined systolic (congestive) and diastolic (congestive) heart failure; I44.7 Left bundle-branch block, unspecified; J44.9 Chronic obstructive pulmonary disease, unspecified; E03.9 Hypothyroidism, unspecified; C44.90 Unspecified malignant neoplasm of skin, unspecified; Z88.0 Allergy status to penicillin; Z79.899 Other long term (current) drug therapy
CPT/HCPCS: 51701; 70450; 71045; 74177; 80048; 80053; 81003; 83690; 84484; 85025 ×2; 87086; 93005; 94640 ×2; 99285; G0378 ×3; 36415; J7620; Q9967